=== PATIENT | female | born 1950 | race Caucasian/White ===

== ENCOUNTER 2017-02-19 12:03 | Emergency (ER) | payer MEDICAID ==
[~2017-02-19] VITALS: Ht 165.1 cm; Wt 68.0 kg
[~2017-02-19 12:03] MED LIST: AMLO10TA2; ASPI81CH43 PO; BENA5TAB5; CLONPOW23
[2017-02-19 12:30] VITALS: BP 107/64
== END 2017-02-19 14:00 | disposition home or self-care (01) ==
LOC: ER 12:03
DX: S46.912A Strain of unspecified muscle, fascia and tendon at shoulder and upper arm level, left arm, initial encounter (principal); F17.210 Nicotine dependence, cigarettes, uncomplicated; M19.90 Unspecified osteoarthritis, unspecified site; I10 Essential (primary) hypertension; X50.9XXA Other and unspecified overexertion or strenuous movements or postures, initial encounter; Y93.89 Activity, other specified; Y99.8 Other external cause status; Y92.89 Other specified places as the place of occurrence of the external cause; Z88.2 Allergy status to sulfonamides; Z79.82 Long term (current) use of aspirin
CPT/HCPCS: 73030

== ENCOUNTER 2018-12-26 15:36 | Emergency (ER) | payer MEDICARE, MEDICAID ==
[~2018-12-26] VITALS: Ht 165.1 cm; Wt 66.7 kg
[~2018-12-26 15:36] MED LIST changes: +AMLO10TA12; -AMLO10TA2
[2018-12-26 15:46] VITALS: BP 114/60
== END 2018-12-26 16:44 | disposition home or self-care (01) ==
LOC: ER 15:36
DX: F41.9 Anxiety disorder, unspecified (principal); F17.210 Nicotine dependence, cigarettes, uncomplicated; F32.9 Major depressive disorder, single episode, unspecified; I10 Essential (primary) hypertension; Z76.0 Encounter for issue of repeat prescription; Z88.2 Allergy status to sulfonamides; Z90.710 Acquired absence of both cervix and uterus